=== PATIENT | male | born 1990 | race Caucasian/White ===

== ENCOUNTER 2022-06-05 09:20 | Emergency (ER) | payer OTHER ==
[~2022-06-05] VITALS: Ht 180.3 cm; Wt 102.3 kg
[2022-06-05] MEDS ORDERED: TRAZ-257 PO (09:25)
[2022-06-05] MEDS ORDERED: GABA-1181 PO (09:25)
[2022-06-05] MEDS ORDERED: LITH300C3 PO ×2 (09:25)
[2022-06-05 10:54] VITALS: BP 125/87
== END 2022-06-05 12:31 | disposition home or self-care (01) ==
LOC: EMS 09:22
DX: F31.9 Bipolar disorder, unspecified (principal); F17.210 Nicotine dependence, cigarettes, uncomplicated
CPT/HCPCS: 99284; Z7502

== ENCOUNTER 2022-06-06 18:16 | Inpatient (IN) | payer MEDICAID ==
[~2022-06-06] VITALS: Ht 175.3 cm; Wt 97.6 kg
[~2022-06-06 18:16] MED LIST: GABA-1181 PO; LITH300C3 PO; TRAZ-257 PO
[2022-06-06] MEDS ORDERED: LORazepam 2 MG TABLET PO PRN (19:30)
[2022-06-06] MEDS ORDERED: HALOPERIDOL 5 MG TABLET PO PRN (19:30)
[2022-06-06] MEDS ORDERED: ZOLPIDEM TARTRATE 10 MG TABLET PO PRN (19:30)
[2022-06-06 19:31] LABS: GLUCOMETER DEV NAME(LOC) POC.BV
[2022-06-07 03:09] VITALS: BP 141/93
[2022-06-07] MEDS ORDERED: NICOTINE 14 MG/24 HOUR PATCH TD PRN (06:30)
[2022-06-07] MEDS ORDERED: CloNIDine HCL 0.1 MG TABLET PO PRN (06:30)
[2022-06-07] MEDS ORDERED: MAG HYDROX/AL HYDROX/SIMETH ES 30 ML SUSPENSION UDCUP PO PRN (06:30)
[2022-06-07] MEDS ORDERED: ONDANSETRON HCL 4 MG TABLET PO PRN (06:30)
[2022-06-07] MEDS ORDERED: PETROLATUM,WHITE 28 GM JELLY TP PRN (06:30)
[2022-06-07] MEDS ORDERED: ALBUTEROL SULFATE HFA 90 MCG/PUFF 8 GM INHALER IH PRN (06:30)
[2022-06-07] MEDS ORDERED: LOPERAMIDE HCL 2 MG CAPSULE PO PRN (06:30)
[2022-06-07] MEDS ORDERED: MAGNESIUM HYDROXIDE SUSPENSION 30 ML UDCUP PO PRN (06:30)
[2022-06-07] MEDS ORDERED: GuaiFENesin/D-METHORPHAN [SUGAR-FREE] 200-20MG/10 ML SYRUP UDCUP PO PRN (06:30)
[2022-06-07] MEDS ORDERED: ACETAMINOPHEN 325 MG TABLET PO PRN (06:30)
[2022-06-07] MEDS ORDERED: IBUPROFEN 400 MG TABLET PO PRN (06:30)
[2022-06-07] MEDS ORDERED: DOCUSATE SODIUM 100 MG CAPSULE PO PRN (06:30)
[2022-06-07 07:11] LABS: BASOPHILS % (AUTO) 0.4 % (0.0-2.0); EOSINOPHILS % (AUTO) 2.2 % (1.0-6.0); HEMATOCRIT 43.4 % (41-53); HEMOGLOBIN 14.7 g/dL (13.5-17.5); LYMPHOCYTES # (AUTO) 1.7 K/uL (1.0-4.8); LYMPHOCYTES % (AUTO) 30.8 % (22.0-44.0); MEAN CORPUSCULAR HEMOGLOBIN 29.2 pg (26.0-34.0); MEAN CORPUSCULAR HGB CONC 33.8 G/dL (31.0-37.0); MEAN CORPUSCULAR VOLUME 86 fL (80-100); MONOCYTES # (AUTO) 0.5 K/uL (0.1-1.0); MONOCYTES % (AUTO) 8.8 % (2.0-9.0); NEUTROPHILS # (AUTO) 3.2 K/uL (1.8-7.7); NEUTROPHILS % (AUTO) 57.8 % (40.0-70.0); PLATELET COUNT (AUTO) 227 K/uL (150-450); RED BLOOD CELL COUNT(AUTO) 5.02 MIL/uL (4.50-5.90); RED CELL DISTRIBUTION WIDTH 13.4 % (11.5-14.5)
[2022-06-07 07:36] LABS: ALANINE AMINOTRANSFERASE 27 U/L (12-78); ALBUMIN 4.1 g/dL (3.4-5.0); ALKALINE PHOSPHATASE 84 U/L (46-116); ANION GAP 0 mmol/L (8-16); ASPARTATE AMINOTRANSFERASE 16 U/L (15-37); BILIRUBIN,TOTAL 0.5 mg/dL (0.1-1.0); CALCIUM, TOTAL 9.4 mg/dL (8.8-10.5); CARBON DIOXIDE 29 mmol/L (22-29); CHLORIDE 105 mmol/L (98-107); CHOL/HDL RATIO 5.5 (4.2-7.3); CHOLESTEROL 172 mg/dL (131-200); CREATININE 0.86 mg/dL (0.60-1.30); FREE T4 (FREE THYROXINE) 1.62 ng/dL (0.76-1.46); GLUCOSE,RANDOM 100 mg/dL (70-110); HDL CHOLESTEROL 31 mg/dL (40-60); LDL CHOL (CALC.) 122 mg/dL (0-130); POTASSIUM 4.1 mmol/L (3.5-5.1); SODIUM SERUM 134 mmol/L (136-145); THYROID STIMULATING HORMONE 2.04 uIU/mL (0.36-3.74); TOTAL PROTEIN, SERUM 7.1 g/dL (6.4-8.2); TRIGLYCERIDES 95 mg/dL (15-150); UREA NITROGEN, BLOOD 7 mg/dL (7-18)
[2022-06-07 07:37] LABS: GLOMERULAR FILTR. RATE CALC > 60 mL/min (>60)
[2022-06-07 11:25] VITALS: BP 137/92
[2022-06-07] MEDS: LITHIUM CARBONATE 300 MG CAPSULE PO SCH ×2 (12:30→12:57)
[2022-06-07] MEDS: GABAPENTIN 300 MG CAPSULE PO SCH ×3 (12:57→16:30)
[2022-06-07 13:02] LABS: APPEARANCE,URINE HAZY (CLEAR); BILIRUBIN,URINE NEGATIVE (NEGATIVE); GLUCOSE, URINE (UA) NEGATIVE (NEGATIVE); KETONES,URINE NEGATIVE (NEGATIVE); LEUKOCYTE ESTERASE ,URINE SMALL (NEGATIVE); NITRATE,URINE NEGATIVE (NEGATIVE); OCCULT BLOOD,URINE NEGATIVE (NEGATIVE); PROTEIN,URINE TRACE mg/dL (NEGATIVE); SPECIFIC GRAVITIY, URINE 1.021 (1.003-1.030); UROBILINOGEN,URINE <=1.0 mg/dL (<=1.0)
[2022-06-07 13:10] LABS: AMPHET/METH SCREEN,URINE NEGATIVE (NEGATIVE); BARBITURATE SCREEN, URINE NEGATIVE (NEGATIVE); BENZODIAZEPINES SCREEN,URINE NEGATIVE (NEGATIVE); CANNABINOID SCREEN,URINE NEGATIVE (NEGATIVE); COCAINE SCREEN,URINE NEGATIVE (NEGATIVE); METHADONE SCREEN, URINE NEGATIVE (NEGATIVE); OPIATE SCREEN,URINE NEGATIVE (NEGATIVE)
[2022-06-07 13:13] LABS: PHENCYCLIDINE SCREEN,URINE NEGATIVE (NEGATIVE)
[2022-06-07 13:19] LABS: AMORPHOUS SEDIMENT,UR Moderate /LPF (None Seen); BACTERIA,URINE Few /HPF (None Seen); RBC,URINE 0-2 /HPF (0-2)
[2022-06-07 20:03] VITALS: BP 143/8
[2022-06-07] MEDS: TraZODone HCL 50 MG TABLET PO SCH (20:03)
[2022-06-07] MEDS: LITHIUM CARBONATE 600 MG CAPSULE PO SCH (20:03)
[2022-06-08 07:01] VITALS: BP 140/87
[2022-06-08] MEDS: GABAPENTIN 300 MG CAPSULE PO SCH ×3 (08:07→16:24)
[2022-06-08] MEDS: LITHIUM CARBONATE 300 MG CAPSULE PO SCH (08:07)
[2022-06-08 09:13] VITALS: BP 118/70
[2022-06-08 20:06] VITALS: BP 117/76
[2022-06-08] MEDS: TraZODone HCL 50 MG TABLET PO SCH (20:11)
[2022-06-08] MEDS: LITHIUM CARBONATE 600 MG CAPSULE PO SCH (20:11)
[2022-06-09] MEDS: GABAPENTIN 300 MG CAPSULE PO SCH ×2 (08:12→12:10)
[2022-06-09] MEDS: LITHIUM CARBONATE 300 MG CAPSULE PO SCH (08:12)
[2022-06-09 08:17] VITALS: BP 115/81
[2022-06-09] MEDS ORDERED: LITH600C5 PO (16:15)
[2022-06-09] MEDS ORDERED: TRAZ-252 PO (16:15)
[2022-06-09] MEDS ORDERED: GABA-1181 PO (16:15)
[2022-06-09] MEDS ORDERED: LITH300C3 PO (16:15)
== END 2022-06-09 15:00 | disposition home or self-care (01) | DRG 750 ==
LOC: B3A 19:27
PROVIDERS: ADMIT Psychiatry & Neurology Child & Adolescent Psychiatry; ATTEND Psychiatry & Neurology Child & Adolescent Psychiatry
DX: F20.9 Schizophrenia, unspecified (principal); E87.1 Hypo-osmolality and hyponatremia; E05.90 Thyrotoxicosis, unspecified without thyrotoxic crisis or storm; F10.10 Alcohol abuse, uncomplicated; F41.9 Anxiety disorder, unspecified; Z20.822 Contact with and (suspected) exposure to COVID-19; Z79.899 Other long term (current) drug therapy
CPT/HCPCS: 80053; 80061; 80307; 81001; 83036; 84439; 84443; 85025; 87081